=== PATIENT | female | born 1980 | race Hispanic/Latino ===

== ENCOUNTER 2018-07-27 06:49 | Day surgery (SDC) | payer MEDICAID ==
[~2018-07-27] VITALS: Ht 162.6 cm; Wt 102.5 kg
[2018-07-27] VITALS (14 sets, daily range): BP systolic 97–132; BP diastolic 60–83
[~2018-07-27 06:49] MED LIST: SODIUM CHLORIDE 0.9% 1000ML 1,000 ML IV ONE
[2018-07-27] MEDS ORDERED: MELA5CAP PO (08:31)
[2018-07-27] MEDS ORDERED: [UNRECOGNIZED DRUG - CODE] PO (08:31)
[2018-07-27] MEDS ORDERED: [UNRECOGNIZED DRUG - CODE] PO (08:31)
[2018-07-27] MEDS ORDERED: CHOL50004 PO (08:31)
[2018-07-27] MEDS ORDERED: ACET1TAB25 PO (08:31)
[2018-07-27] MEDS ORDERED: PROPOFOL 10 MG/ML 20ML VIAL IV ONE ×2 (09:08)
[2018-07-27] MEDS ORDERED: MIDAZOLAM HCL 1 MG/ML 2ML VIAL ONE (09:17)
== END 2018-07-27 10:34 | disposition home or self-care (01) ==
LOC: DAH 06:49
PROVIDERS: ATTEND Internal Medicine Gastroenterology
DX: K29.50 Unspecified chronic gastritis without bleeding (principal); K21.0 Gastro-esophageal reflux disease with esophagitis; M32.9 Systemic lupus erythematosus, unspecified; E78.5 Hyperlipidemia, unspecified
CPT/HCPCS: 43239; 88305; A4606; J2250; J2704 ×2; J7030

== ENCOUNTER 2018-09-18 08:51 | Emergency (ER) | payer MEDICAID ==
[~2018-09-18 08:51] MED LIST changes: +ACET1TAB25 PO; +CHOL50004 PO; +MELA5CAP PO; -SODIUM CHLORIDE 0.9% 1000ML 1,000 ML IV ONE; +[UNRECOGNIZED DRUG - CODE] PO; +[UNRECOGNIZED DRUG - CODE] PO
[2018-09-18] MEDS ORDERED: ACETAMINOPHEN 325 MG TAB ONE (09:31)
== END 2018-09-18 09:38 | disposition home or self-care (01) ==
LOC: EDH 08:51
DX: S93.491A Sprain of other ligament of right ankle, initial encounter (principal); L93.0 Discoid lupus erythematosus; M06.9 Rheumatoid arthritis, unspecified; Z90.49 Acquired absence of other specified parts of digestive tract; Z90.710 Acquired absence of both cervix and uterus; X58.XXXA Exposure to other specified factors, initial encounter; Y93.89 Activity, other specified; Y92.89 Other specified places as the place of occurrence of the external cause; Y99.8 Other external cause status
CPT/HCPCS: 73610

== ENCOUNTER 2018-09-29 11:56 | Emergency (ER) | payer MEDICAID ==
[2018-09-29] MEDS ORDERED: IBUPROFEN 600 MG TABLET ONE (12:53)
== END 2018-09-29 13:10 | disposition home or self-care (01) ==
LOC: EDH 11:56
DX: S93.691A Other sprain of right foot, initial encounter (principal); M06.9 Rheumatoid arthritis, unspecified; L93.0 Discoid lupus erythematosus; Z90.49 Acquired absence of other specified parts of digestive tract; Z90.710 Acquired absence of both cervix and uterus; X50.0XXA Overexertion from strenuous movement or load, initial encounter; Y93.89 Activity, other specified; Y92.89 Other specified places as the place of occurrence of the external cause; Y99.8 Other external cause status
CPT/HCPCS: 73630

== ENCOUNTER 2019-11-29 13:18 | Emergency (ER) | payer MEDICAID ==
[2019-11-29 14:54] LABS: RAPID GROUP A STREP NEGATIVE (NEGATIVE)
== END 2019-11-29 15:21 | disposition home or self-care (01) ==
LOC: EDH 13:18
DX: J30.9 Allergic rhinitis, unspecified (principal); B34.9 Viral infection, unspecified; M06.9 Rheumatoid arthritis, unspecified
CPT/HCPCS: 87804; 87880